=== PATIENT | female | born 1995 | race Two or more races ===

== ENCOUNTER 2019-01-02 04:16 | Emergency (ER) | payer OTHER ==
[~2019-01-02] VITALS: Ht 165.1 cm; Wt 47.6 kg
[~2019-01-02 04:16] MED LIST: NO TOMA MEDICAMENTO; PEPCID40 MG PO; ZOFRAN4 MG PO
== END 2019-01-02 11:10 | disposition home or self-care (01) ==
LOC: ER 04:16
DX: R10.31 Right lower quadrant pain (principal)

== ENCOUNTER 2019-01-06 08:53 | Outpatient (CLI) | payer OTHER | END 2019-01-06 09:30 | disposition home or self-care (01) | LOC: LAB 08:53 | DX: E78.49 Other hyperlipidemia (principal); Z00.00 Encounter for general adult medical examination without abnormal findings; E55.9 Vitamin D deficiency, unspecified; E87.6 Hypokalemia; R10.2 Pelvic and perineal pain ==

== ENCOUNTER 2021-03-12 11:30 | Emergency (ER) | payer OTHER ==
[~2021-03-12] VITALS: Ht 167.6 cm; Wt 45.4 kg
== END 2021-03-12 14:06 | disposition home or self-care (01) ==
LOC: ER 11:30
DX: J32.8 Other chronic sinusitis (principal)